=== PATIENT | male | born 1985 | race Caucasian/White ===

== ENCOUNTER 2020-04-11 00:49 | Emergency (ER) | payer MEDICAID ==
[~2020-04-11] VITALS: Ht 180.3 cm; Wt 182.8 kg
[2020-04-11 00:55] VITALS: Ht 180.3 cm; Wt 182.8 kg
[2020-04-11 02:35] VITALS: BP 124/82
== END 2020-04-11 02:35 | disposition home or self-care (01) ==
LOC: ED 00:49
DX: S61.412A Laceration without foreign body of left hand, initial encounter (principal); W54.0XXA Bitten by dog, initial encounter; Y93.89 Activity, other specified; Y92.89 Other specified places as the place of occurrence of the external cause; Y99.8 Other external cause status
CPT/HCPCS: 90715; J2001